=== PATIENT | female | born 1985 | race Caucasian/White ===

== ENCOUNTER 2023-10-17 21:49 | Emergency (ER) | payer BC, SELFPAY ==
[2023-10-17 22:21] LABS: % Basophils 0.3 % (0-2); % Eosinophils 0.6 % (0-6); % Lymphocytes 45.9 % (20.5-51.1); % Monocytes 20.3 % (1.7-9.3); % Neutrophils 32.9 % (42.2-75.2); Absolute Lymphocytes 1.5 10^3/uL (1.2-3.4); Absolute Monocytes 0.7 10^3/uL (0.1-0.6); Absolute Neutrophils 1.1 10^3/uL (1.4-6.5); Hematocrit 38.1 % (37.0-47.0); Hemoglobin 13.3 g/dL (12.0-16.0); Mean Corp Hgb Conc. 34.9 g/dL (33.0-37.0); Mean Corpuscular Hgb 30.9 pg (27.0-31.0); Mean Corpuscular Volume 88.4 fL (81.0-99.0); Mean Platelet Volume 10.2 fL (7.4-10.4); Nucleated Red Blood Cells % 0 %; Platelet Count 208 10^3/uL (130-400); Red Blood Cell Count 4.31 10^6/uL (4.20-5.40); Red Cell Dist. Width 12.6 % (11.5-14.5); White Blood Cell Count 3.2 10^3/uL (4.8-10.8)
[2023-10-17 22:29] LABS: HCG, Serum Qualitative Screen Negative
[2023-10-17 22:32] LABS: ALT (SGPT) 37 U/L (0-35); AST (SGOT) 38 U/L (14-36); Albumin 4.9 g/dl (3.5-5.0); Alkaline Phosphatase 53 U/L (38-126); Blood Urea Nitrogen 25 mg/dl (7-17); Calcium 10.4 mg/dl (8.4-10.2); Carbon Dioxide 29 mmol/L (22-30); Chloride 100 mmol/L (98-107); Glucose 91 mg/dl (70-99); Lipase 159 U/L (23-300); Potassium 4.2 mmol/L (3.5-5.1); Sodium 135 mmol/L (135-145); Total Bilirubin 0.4 mg/dl (0.2-1.3); Total Protein 7.4 g/dl (6.3-8.2); eGFR > 60.00
[2023-10-17 23:10] LABS: Atypical Lymphocytes 1 %; Band Neutrophils 0 % (0-3); Lymphocytes 37 % (20-51); Monocytes 30 % (2-9); Segmented Neutrophils 32 % (42-75)
[2023-10-17 23:11] LABS: Normal RBC Morphology Yes; Platelets Checked Yes; Total Cells Counted 100
--- NOTE | 2023-10-18 00:10 | ED.GENMED ---
History of Present Illness
General
Chief Complaint: Abdominal Pain
Source: patient
Exam Limitations: none
Time Seen by Provider: 10/18/23 00:01
History of Present Illness
History of Present Illness:
See MDM
Past History
Past History
ED Past Medical History: Other (anxiety)
ED Past Surgical History: None
Social History
Tobacco: Non-smoker
Alcohol: Occasional
Phy Exam
Physical Exam
Physical Exam:
See MDM
Course
Orders/Labs/Results
Orders:
Orders
10/17/23 22:00
Electrocardiogram (*1) Urgent
Reason for Study: Chest Pain
10/17/23 22:01
EKG- Treatment ONCE
Test Result ONCE
10/17/23 22:10
Complete Blood Count/With Diff Urgent
Comprehensive Metabolic Panel Urgent
HCG, Serum Qualitative Screen Urgent
Lipase Urgent
Manual Differential Urgent
10/18/23 00:09
CT Abd/pelvis W Iv Cont Urgent
Comment:
Reason For Exam: intermittent mid abd pain
Ketorolac [Toradol] 30 mg IV NOW STA
Abnormal Lab Results
10/17/23
22:10
WBC 3.2 L 10^3/uL
(4.8-10.8)
Absolute Neuts (auto) 1.1 L 10^3/uL
(1.4-6.5)
Absolute Monos (auto) 0.7 H 10^3/uL
(0.1-0.6)
Neutrophils % 32.9 L %
(42.2-75.2)
Monocytes % 20.3 H %
(1.7-9.3)
Abs Neuts (Manual) 1.0 L 10^3/uL
(1.4-6.5)
Segmented Neutrophils 32 L %
(42-75)
Monocytes (Manual) 30 H %
(2-9)
BUN 25 H mg/dl
(7-17)
Calcium 10.4 H mg/dl
(8.4-10.2)
AST 38 H U/L
(14-36)
ALT 37 H U/L
(0-35)
10/17/23 22:10
10/17/23 22:10
Vital Signs
Initial and Last Documented VS:
Initial Vital Signs
Temp Pulse Resp BP Pulse Ox
99.1 F 92 18 152/104 100
10/17/23 21:52 10/17/23 21:52 10/17/23 21:52 10/17/23 21:52 10/17/23 21:52
Last Documented Vital Signs
Temp Pulse Resp BP Pulse Ox
99.1 F 92 18 152/104 100
10/17/23 21:52 10/17/23 21:52 10/17/23 21:52 10/17/23 21:52 10/17/23 21:52
MDM/Problems Addressed
Differential Diagnosis Includes:
HPI and MDM Narrative:
38-year-old female presenting for mid abdominal pain. Symptoms have been going on for the past 24 hours or so. Symptoms come in waves. She denies vomiting or diarrhea. She denies sick contacts
On exam, there is mid abdominal tenderness without rebound. Given the ongoing symptoms, will obtain CT
Physical exam
General: Well appearing and non-toxic
HEENT: protecting airway
Neck: appears supple
CV: No evidence of cyanosis
Resp: No accessory muscle use
Abd: Non-distended. Mid abdominal tenderness without rebound. No right upper quadrant or right lower quadrant tenderness
Extremities: No deformities
Neuro: alert
Psych: Normal affect
Skin: Intact
Problems Addressed including Acute and Chronic Conditions affecting care:
1. Abdominal pain
Acuity: acute
Prognosis: stable
Details: Given the ongoing symptoms, will obtain CT
Updates
CT consistent with large stool burden. We discussed likely constipation, MiraLAX and return precautions
Differential Diagnosis (but not limited to): Colitis, gastritis, constipation, early appendicitis.
Testing considered: Right upper quadrant ultrasound.
Drug therapy (if applicable): OTC meds, please see d/c instruction regarding Rx drugs
Amount and/or Complexity of Data Reviewed
Clinical info obtained from: Patient
External data reviewed: N/A
Labs I independently reviewed (but not limited to): White blood cell count
Radiology: The CT scan was personally and independently reviewed. In addition, official CT report reviewed.
Pulse Ox: not hypoxic
EKG independently reviewed: N/A
Relay Checker: N/A
Critical Care: N/A
Risk of Complication:
Social Determinants of health: Good social support
Discussed with other providers: N/A
Escalation of Care includes Admit/Obs: After being observed in the Emergency Department, pt stable for discharge.
Occasional wrong word or 'sound a like' substitutions may have occurred due to the inherent limitations of voice recognition software. Read the chart carefully and recognize, using context, where substitutions have occurred.
*Critical Care Note
Total Time (30-74mins, 75-104mins- exclusive of procedures): Not Applicable
ED Attending Note
-
Portions of this chart may have been created with voice recognition software.� Occasional wrong word or��sound alike� substitutions may have occurred due to the inherent limitations of voice recognition software.
Discharge Plan
Departure
Patient Disposition: Home (Routine Discharge)
Date of Disposition: 10/18/23
Time of Disposition: 02:21
Patient with high blood pressure during this ER visit?: Yes
Discharge Problem:
Constipation
Instructions: Constipation, Adult (DC)
Prescriptions:
No Action
[facility] 1 EACH tablet
1 ea PO DAILY
escitalopram oxalate 5 MG tablet
5 mg PO DAILY
meclizine 25 MG tablet
25 mg PO Q8HPRN PRN (Reason: dizzy) Qty: 15 0RF
ondansetron 4 MG tablet,disintegrating
4 mg PO TIDPRN PRN (Reason: nausea/vomiting) Qty: 14 0RF
Referrals:
Ann Marie Montaño PA [Family Provider] -
Activity Restrictions/Additional Instructions:
Please return for any worsening symptoms.
You may return at any time if you have further concerns.
Please follow up with your doctor at the first available appointment, preferably this week.
Please take MiraLAX up to twice a day for the next several days.
Thank you for choosing [facility].
Interventions
Interventions:
*Risk Screen - Suicide Last Done: 10/17/23 21:52
*General Assessment Last Done: 10/17/23 21:52
*Neglect/Abuse Screening Last Done: 10/17/23 21:52
Discharge Date and Time
Print Language: [place]
[2023-10-18] MEDS: TORADOL 30 MG IV (00:16)
== END 2023-10-18 02:28 | disposition home or self-care (01) ==
LOC: EMR 21:49
PROVIDERS: EMERGENCY PHYSICIAN Student in an Organized Health Care Education/Training Program; FAMILY PHYSICIAN Physician Assistant Medical
DX: R10.9 Unspecified abdominal pain (principal); F41.9 Anxiety disorder, unspecified; K59.00 Constipation, unspecified
CPT/HCPCS: 99284; 96374; 74177; 80053; 83690; 84703; 85025; 93005; Q9967

== ENCOUNTER → 2023-12-23 14:40 | Outpatient (REF) | payer BC, SELFPAY | LOC: MRI 3T 14:40 | PROVIDERS: FAMILY PHYSICIAN Family Medicine | DX: M65.871 Other synovitis and tenosynovitis, right ankle and foot (principal) | CPT/HCPCS: 73721 ==

== ENCOUNTER → 2024-07-20 08:27 | Outpatient (REF) | payer BC, SELFPAY | LOC: HWRAD 08:27 | PROVIDERS: ATTENDING PHYSICIAN Nurse Practitioner Family; FAMILY PHYSICIAN Family Medicine | DX: R10.2 Pelvic and perineal pain (principal) | CPT/HCPCS: 76830; 76856 ==

== ENCOUNTER → 2025-01-21 15:44 | Outpatient (REF) | payer BC, SELFPAY | LOC: HWRAD 15:44 | PROVIDERS: ATTENDING PHYSICIAN Physician Assistant | DX: M79.645 Pain in left finger(s) (principal) | CPT/HCPCS: 73140 ==